=== PATIENT | male | born 1995 | race Two or more races ===

== ENCOUNTER 2018-09-21 16:33 | Inpatient (IN) ==
[2018-09-21] MEDS ORDERED: SODIUM CHLORIDE 0.9% 1000ML 1,000 ML IV SCH ×2 (16:45→21:55)
[2018-09-21 17:56] LABS: Basophils # (auto) 0.02 K/uL (0-0.2); Basophils % (auto) 0.2 %; Eosinophils # (auto) 0.04 K/uL (0-0.5); Eosinophils % (auto) 0.4 %; Hematocrit (blood only) 45.7 % (42-52); Hemoglobin 16.3 g/dL (14.0-18.0); Immature Granulocytes # (auto) 0.02 K/uL (0.00-0.02); Immature Granulocytes % (auto) 0.2 %; Lymphocytes # (auto) 2.95 K/uL (1.2-3.4); Lymphocytes % (auto) 33.2 %; Mean Corpuscular Hgb Conc 35.7 g/dL (32-36); Mean Corpuscular Volume 89.1 fL (80-100); Mean Platelet Volume 10.2 fL (7.4-10.4); Monocytes # (auto) 0.58 K/uL (0.11-0.59); Monocytes % (auto) 6.5 %; Neutrophils # (auto) 5.28 K/uL (1.4-6.5); Neutrophils % (auto) 59.5 %; Platelet Count 198 K/uL (130-400); RDW Coefficient of Variation 12.1 % (11.5-14.5); Red Blood Count 5.13 M/uL (4.7-6.1); White Blood Count 8.89 K/uL (4.8-10.8)
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
[2018-09-21 18:15] LABS: Alanine Aminotransferase 27 U/L (12-78); Albumin Level 5.1 gm/dl (3.4-5.0); Aspartate Aminotransferase 19 U/L (15-37); BUN Creatinine Ratio 18.1 (10-20); Blood Urea Nitrogen 18 mg/dl (7-18); Calcium 9.8 mg/dl (8.5-10.1); Carbon Dioxide 26 mmol/L (21-32); Chloride 106 mmol/L (98-107); Est GFR (African American) 122.2; Est GFR (Non-African American) 105.4; Glucose 80 mg/dl (70-99); Potassium 3.8 mmol/L (3.5-5.1); Sodium 141 mmol/L (136-145)
[2018-09-21 18:25] LABS: Albumin Globulin Ratio 1.7 (0.9-2); Alkaline Phosphatase 60 U/L (45-117); Bilirubin,Total 0.9 mg/dl (0.2-1); Globulin 3.1 gm/dl (2.5-4.0); Total Protein 8.2 gm/dl (6.4-8.2)
[2018-09-21 19:14] LABS: Appearance Urine Cloudy (Clear); Bacteria Urine Automated Negative (Negative); Bilirubin Urine Negative (Negative); Blood Urine Negative (Negative); Color Urine Yellow; Epithelial Cell Urine Auto >30 /lpf (0-5); Glucose Urine UA Negative (Negative); Ketones Urine 2+ (Negative); Leukocyte Esterase Urine Trace (Negative); Nitrite Urine Negative (Negative); Protein Urine Negative (Negative); Urobilinogen Urine Negative (Negative)
[2018-09-21] MEDS: ONDANSETRON HOME PACK 4MG OD TAB PO ONE ×2 (19:48→20:07)
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
[2018-09-21 22:41] LABS: Magnesium 2.3 mg/dl (1.8-2.4); Phosphorus 3.6 mg/dl (2.5-4.9)
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
[2018-09-22 12:39] LABS: Lyme Ab IgG w/WB Rflx Negative (Negative); Lyme Ab IgM w/WB Rflx Negative (Negative)
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
[2018-09-22 14:31] LABS: Amphetamines+Metham, Urine Neg (Neg); Barbiturates, Urine Neg (Neg); Benzodiazepine, Urine Neg (Neg); Cocaine, Urine Neg (Neg); MDMA (Ecstacy), Urine Neg (Neg); Methadone, Urine Neg (Neg); Opiate, Urine Neg (Neg); Phencyclidine, Urine Neg (Neg)
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
[2018-09-23] MEDS ORDERED: GADOBUTROL 65ML VIAL IV PRN (17:19)
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
== END 2018-09-25 18:28 | DRG 885 ==
LOC: 3N 16:33 → ED 16:33 → SUATTDRO 20:47 → 3N 21:35 → SUATTDRO 09-23 15:29

== ENCOUNTER 2018-09-25 18:25 | Inpatient (IN) ==
[2018-09-25] MEDS ORDERED: ACETAMINOPHEN 325 MG TAB PO PRN (18:39)
[2018-09-25] MEDS ORDERED: MAGNESIUM HYDROXIDE SUSP 30 ML UDC PO PRN (18:39)
[2018-09-25] MEDS ORDERED: ALUMINUM/MAGNESIUM SUSP 30 ML UDC PO PRN (18:39)
[2018-09-25] MEDS ORDERED: SODIUM CHLORIDE 0.65% NA SOLN 45 ML (OCEAN) PRN (18:39)
[2018-09-25] MEDS ORDERED: BISMUTH SUBSALICYLATE PER ML OMNICELL CHARGE PO PRN (18:39)
[2018-09-25] MEDS: ARIPiprazole 5 MG TAB PO SCH (19:17)
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
[2018-09-26 07:27] LABS: Chol HDL Ratio 3; Cholesterol 145 mg/dl (0-200); HDL Cholesterol 43 mg/dl; LDL Cholesterol Calculated 89 mg/dl; Triglycerides 66 mg/dl (0-150); VLDL Cholesterol 13 mg/dl
[2018-09-26] MEDS: ARIPiprazole 5 MG TAB PO SCH (09:48)
[2018-09-26] MEDS ORDERED: risperiDONE 0.5 MG TABLET PO PRN (16:16)
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
[2018-09-27] MEDS: ARIPiprazole 5 MG TAB PO SCH (11:57)
[2018-09-27] MEDS: CYANOCOBALAMIN 500 MCG TABLET (VITAMIN B-12) PO SCH (11:58)
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
[2018-09-28] MEDS: ARIPiprazole 5 MG TAB PO SCH (09:41)
[2018-09-28] MEDS: CYANOCOBALAMIN 500 MCG TABLET (VITAMIN B-12) PO SCH (09:41)
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
[2018-09-28] MEDS ORDERED: risperiDONE 0.5 MG TABLET PO PRN (11:01)
[2018-09-29] MEDS: CYANOCOBALAMIN 500 MCG TABLET (VITAMIN B-12) PO SCH (07:55)
--- NOTE | 2018-09-29 12:16 | Psychiatric Progress Note ---
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 He has difficulty describing the voices that he hears, but notes that the content of the voices are typically depreciating and threatening. -Perhaps the most market feature of the patient's current presentation is is disorganized thinking and, to a lesser extent, disorganized behavior. He cannot explain why he is not eating, and when he attempts to do so his thought processes become so disorganized to that they cannot be followed by the listener. -The patient's speech is rambling and somewhat rapid, but not fully pressured. We want to rule out other psychiatric diagnoses including bipolar disorder. He does provide a history that suggests past episodes of elevated, expansive mood during which she has decreased desire for sleep, increased energy, and a great deal of enthusiasm. He notes that during these episodes that may last a week or 2 other people may tell him to "slow down" or to stop talking so much. He also acknowledges that he has had periods of depression in the past, including fairly recently. His symptoms of depression reportedly include depressed mood, psychosocial withdrawal, and apathy. -We would like to offer the patient a trial of low-dose aripiprazole to address his disorganized thinking and perceptual disturbances. -The patient's memory difficulties were more pronounced several days ago. He remains a vague historian, but today he is able to tell us that he is at [facility], located in [facility], and he correctly identifies the current date and his date of admission. However, he cannot tell us for certain whether he is ever been in a psychiatric unit, whether he has had psychiatric treatment in the past, and who may or may not currently live in his home in the community. The patient's memory difficulties may be postconcussive in nature or may be related to an underlying psychotic process 09/26 -Ultimately patient was admitted yesterday on a voluntary status from medical floor. He is now refusing Abilify. Will discontinue and substitute Risperdal 0.5 mg p.o. twice daily as needed for anxiety/insomnia/psychosis. Common risks and benefits reviewed. Patient encouraged to take, particularly at bedtime -So far unclear if patient is suffering from primary thought disorder, cyclic mood disorder, or possibly severe anxiety in the setting of cultural isolation and fatigue. He describes a severe homesick feeling and insomnia and perhaps this is more a form of acute stress reaction. If we see continued evidence of psychosis, we may need to pursue the 302 for medications over objection. -We will try to facilitate telephone family meeting with parents to expand database as able. 09/27 -Patient appearing more at ease with brighter affect and more logical thought process this morning after a good night's rest last evening -He initially agreed to take the Abilify once again and it was restarted however I was informed later that he ultimately declined it without reason -Attempted to reach his friend, Wilfredo, to expand database at provided number of [phone] but was unable to reach him directly and there was no opportunity to leave a voicemail. He has indicated that he would like to speak with the physician to provide additional information. We will reattempt contact. Hopefully he will come into visit again this afternoon and can relay some information to the staff at that time. -Patient has expressed desire to return to [place] following discharge. We are attempting to make direct contact with his parents -Recent labs reviewed again today. Glucose normal on 09/21/2018. Lipid panel unremarkable on 09/26/2018. His B12 level was within normal range but lower than we like for neurological benefit at 221 on 09/22/18 and will start vitamin B12 1000 mcg daily for supplementation 09/28 -Patient consistently refusing scheduled aripiprazole. Will discontinue it, but continue to offer risperidone 0.5 mg every 6 hours as needed psychosis/anxiety/insomnia. This medication did appear beneficial last night when he got it. -Scheduled family meeting with parents in [place], and get collateral information from them as well as family history. -Parents are attempting to get emergency pieces to come to the [place] and collect patient at discharge, and take him back to [facility]. We will need to help him coordinate with the [place]. 09/29 - Patient continues to refuse medications. He received risperidone last evening, but is not interested in taking any additional doses. Despite the medication reportedly being beneficial - Extensive meeting held with patient and friend, James. Pt did call parents, but there was limited translation provided by friend. Parents denied any concerns regarding their interactions with him on the phone today. Both supports suggest the patient is now at baseline and they feel comfortable with his discharge; actually requesting he leave today - Will continue to work with patient to ensure discharge planning and flight are arranged (2) Anxiety: 09/26 -Patient appears quite anxious with obsessive compulsive rigid quality to thinking. He is extremely invested in telephone contact with friend/family outside of hospital and rigidly preoccupied with the whereabouts of his belongings. 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 He tells us that he currently lives in a house in [place] with several roommates. He has no known past psychiatric history. And was admitted on 09/25/18 on a 201 voluntary because of a persistent set of mental status alterations that cannot be explained by any demonstrable somatic or neurologic etiology. Chief Complaint "I am very good. Thank you." Review of Systems Notes Constitutional: reports feeling "slow" after medications; but then states he has avoided things that give him energy [coffee] Cardiovascular: denied Respiratory: denied Gastrointestinal: denied Neurological: denied Psychiatric: denies symptoms other than stated above Total of at least 10 systems reviewed, pertinent positives as above and in HPI. Sleep Information Total Hours of Sleep: 6.25 Sleep Comments: did take a prn hs dose of risperdal Meal Information Percent Meal Consumed - Breakfast: 100 Percent Meal Consumed - Lunch: 0 Percent Meal Consumed - Dinner: 100 Nutrition Comment: documented on the patient meal record Subjective Subjective Patient was seen & assessed and interval progress reviewed with nursing and social work. Pt did agree to a prn dose of risperidone last evening, which reportedly appeared to be beneficial. Pt reported feeling "energetic" to staff. He did receive a visit from friends. Pt was seen today to assess progress since admission. Prior to assessment, this provider has observed the patient's behavior on the unit. Pt had been walking rather rigidly and slowly down the sanchez. He was found to be staring into the social work office, then slowly turned to walk again down the sanchez. He entered the day area, stared out the window and began a repeated movement of stretching out his arm, spreading his fingers, and then pulling his arm back in. Pt was informed of a phone call, and left to take it. He sat for a period of time staring at the wall with the phone laying on the counter. He was observed to be slowly reaching for the phone, clearly not reaching where the phone had been placed. At one point, he was again observed to be sitting near the phone, staring, with the phone laying on the counter beside him. Patient was later approached by this provider, as it had been passed along the patient was requesting to speak with a clinician. Pt recognized this provider and was agreeable to speaking. Patient veered off as this provider led him to the office. He quickly moved down the hallway, mentioning his "mobile" [cell phone]. He states, "Meghana [child protective services social worker] told me a phrase I could use if I needed to use my phone...it was...um..."when you have...time..."...um, I don't remember what it was." Pt was then also approached by nursing who suggested the patient take a prn risperidone as we attempted to explain we were concerned he was not acting himself. Pt had difficulty clearly expressing a desire to refuse the medication - speaking about the brain and spinal cord, no longer having problems, and reporting he felt "slow" on the medication. Pt was again encouraged to utilize the medication - he was observed to be staring off in the distance on several occasions, with periods of prolonged silence and no response to staff stating his name and asking questions. Patient was asked if he was seeing or hearing things. He states "seeing things." When asked what, it sounded as if he said "I see a lady" - in the activity room that no one was occupying at the time. When asked if staff could also see it, or just him, he states, "just me." Pt again refused recommendation for medication and walked away. This provider did participate in an attempt to reach out to the patient's parents via medical driver, which was unsuccessful. Fortunately, patient received a visit from a friend, James, who wished to provide supplemental information. Pt signed an MARISA and friend was brought back to the social work office with patient, child protective services social worker, and this provider. See Mental health worker note for additional information - in summary, the friend felt the patient has been improving, and today is behaving normally for him. The both expressed their hope for discharge today. Both were informed this would not be the case, but that additional information would help use determine this timeline. Friend reported, "earlier you could tell he was off, he had slow speech, and he would be quiet for a long time before talking." James feels patient is no longer displaying these symptoms. Pt was able to explain the long pauses are due to him feeling uncomfortable. We relayed the conversation from this morning regarding his prolonged staring and reporting visions only he could see. Pt justified his behavior by stating, "I said I see a radio, and I was thinking about music." Lito reports that patient would have support of friends should he be discharged soon and require assistance with packing. He feels the patient is at baseline at this time. We did call patient's family as well using the patient's phone, as the medical driver device had not connected previously. James had reported willingness to interpret conversation to allow for clear communication; however, the patient unfortunately took over the conversation discussing various topics with his parents. Both patient and his parents continue to request immediate discharge, and explanation was provided as to why this would not be possible. Pt resisted multiple attempts from staff to conclude his conversation, as little information could be obtained through the phone call. It was determined patient would be evaluated by the psychiatrist tomorrow to determine timeline of discharge. If appropriate, recommending family purchase a plane ticket for the end of the week. Physical Exam Psychiatric Orientation: alert, oriented x 3 and cooperative (only superficially) Apperance: appropriately dressed, appropriately groomed and appeared stated age Eye Contact: + fair eye contact (periods of intense staring alternating with moments of direct eye contact) Motor Behavior: steady gait and station and + psychomotor retardation various displays of psychomotor retardation (prolonged staring/standing in one space) alternating with a more typical presentation Speech: normal rate/rhythm/volume of speech (rapid speech likey cultural, though is somewhat pressured and hyperverbal) Affect: + anxious affect and + irritable affect Mood is less labile, though he continues to fluctuate between anxious presentation and irritability regarding not being discharged. At times flat affect is displayed, especially when it appears he may be responding to internal stimuli. Mood: + anxious mood (only reporting "I feel uncomfortable here"); no depressed mood "I feel fine, I would like to go today." Thought Process: goal directed thought process, + thought blocking and + loo seness of associations Patient appears to have demonstrated numerous different thought processes today - at times is highly organized and able to have effective conversation; other times he appears thought blocked and seems to be responding to internal stimuli. Unclear if occasions of looseness of associations are related to cultural misunderstandings or his thought process Thought Content: + preoccupation (with discharge) and + paranoid (requesting and thoroughly reviewing belonging's sheet) Hallucinations: no auditory hallucinations and no visual hallucinations Denies; though appears at times to be responding to internal stimuli. Cognition: attention grossly intact and language grossly intact Estimated Intelligence: + above average estimated intelligence Insight: + impaired insight Judgement: + impaired judgement Vital Signs (Past 24 Hours) Last Vital Signs Temp 36.5 C 09/29/18 06:42 Pulse 86 09/29/18 06:43 Resp 18 09/29/18 06:42 BP 115/80 09/29/18 06:43 Results & Data Current Inpatient Medications Current Inpatient Medications: Current Inpatient Medications Acetaminophen (Tylenol) 650 mg PO Q4H PRN PRN Reason: Headache or Minor Fever Stop: 10/25/18 18:38 Al Hydrox/Mg Hydrox/Simethicone (Maalox) 30 ml PO Q4H PRN PRN Reason: GI Upset Stop: 10/25/18 18:38 Bismuth Subsalicylate (Kaopectate) 15 ml PO PRN PRN PRN Reason: Loose Stool Stop: 10/25/18 18:38 Cyanocobalamin (Vitamin B-12) 1,000 mcg PO QAM TABITHA Stop: 10/27/18 11:14 Last Admin: 09/29/18 07:55 Dose: 500 mcg Documented by: Hydroxyzine HCl (Vistaril) 25 mg PO Q4H PRN PRN Reason: Anxiety Stop: 10/25/18 18:38 Hydroxyzine HCl (Vistaril) 50 mg PO HSZ PRN PRN Reason: Insomnia Stop: 10/25/18 18:38 Magnesium Hydroxide (Milk Of Magnesia) 30 ml PO DAILY PRN PRN Reason: Heartburn Stop: 10/25/18 18:38 Risperidone (Risperdal) 0.5 mg PO Q6H PRN PRN Reason: psychosis/anxiety/insomnia Stop: 10/26/18 16:15 Last Admin: 09/28/18 22:54 Dose: 0.5 mg Documented by: Sodium Chloride ([place] Nasal) 1 - 2 sprays NA PRN PRN PRN Reason: Nasal Dryness/Congestion Stop: 10/25/18 18:38 Post Discharge Appointments Primary Care Physician Name Of Family Doctor: TETE CPT Code CPT Code 10996
--- NOTE | 2018-09-30 09:34 | Psychiatric Progress Note ---
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 Working diagnosis is schizophreniform disorder, although there is a broad differential. He has been resistant to medication and is now refusing after taking only one dose of aripiprazole and 2 doses of risperidone. His behavior remains disorganized, with paranoia and VH, but is improved from admission. He is eating and sleeping better (although sleep is still suboptimal), and is not bathing or brushing teeth. He and his family are planning that he will return to [facility] after discharge, and aftercare is being arranged there. 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 He has difficulty describing the voices that he hears, but notes that the content of the voices are typically depreciating and threatening. -Perhaps the most market feature of the patient's current presentation is is disorganized thinking and, to a lesser extent, disorganized behavior. He cannot explain why he is not eating, and when he attempts to do so his thought processes become so disorganized to that they cannot be followed by the listener. -The patient's speech is rambling and somewhat rapid, but not fully pressured. We want to rule out other psychiatric diagnoses including bipolar disorder. He does provide a history that suggests past episodes of elevated, expansive mood during which she has decreased desire for sleep, increased energy, and a great deal of enthusiasm. He notes that during these episodes that may last a week or 2 other people may tell him to "slow down" or to stop talking so much. He also acknowledges that he has had periods of depression in the past, including fairly recently. His symptoms of depression reportedly include depressed mood, psychosocial withdrawal, and apathy. -We would like to offer the patient a trial of low-dose aripiprazole to address his disorganized thinking and perceptual disturbances. -The patient's memory difficulties were more pronounced several days ago. He remains a vague historian, but today he is able to tell us that he is at [facility], located in [facility], and he correctly identifies the current date and his date of admission. However, he cannot tell us for certain whether he is ever been in a psychiatric unit, whether he has had psychiatric treatment in the past, and who may or may not currently live in his home in the community. The patient's memory difficulties may be postconcussive in nature or may be related to an underlying psychotic process 09/26 -Ultimately patient was admitted yesterday on a voluntary status from medical floor. He is now refusing Abilify. Will discontinue and substitute Risperdal 0.5 mg p.o. twice daily as needed for anxiety/insomnia/psychosis. Common risks and benefits reviewed. Patient encouraged to take, particularly at bedtime -So far unclear if patient is suffering from primary thought disorder, cyclic mood disorder, or possibly severe anxiety in the setting of cultural isolation and fatigue. He describes a severe homesick feeling and insomnia and perhaps this is more a form of acute stress reaction. If we see continued evidence of psychosis, we may need to pursue the 302 for medications over objection. -We will try to facilitate telephone family meeting with parents to expand database as able. 09/27 -Patient appearing more at ease with brighter affect and more logical thought process this morning after a good night's rest last evening -He initially agreed to take the Abilify once again and it was restarted however I was informed later that he ultimately declined it without reason -Attempted to reach his friend, Wilfredo, to expand database at provided number of [phone] but was unable to reach him directly and there was no opportunity to leave a voicemail. He has indicated that he would like to speak with the physician to provide additional information. We will reattempt contact. Hopefully he will come into visit again this afternoon and can relay some information to the staff at that time. -Patient has expressed desire to return to [facility] following discharge. We are attempting to make direct contact with his parents -Recent labs reviewed again today. Glucose normal on 09/21/2018. Lipid panel unremarkable on 09/26/2018. His B12 level was within normal range but lower than we like for neurological benefit at 221 on 09/22/18 and will start vitamin B12 1000 mcg daily for supplementation 09/28 -Patient consistently refusing scheduled aripiprazole. Will discontinue it, but continue to offer risperidone 0.5 mg every 6 hours as needed psychosis/anxiety/insomnia. This medication did appear beneficial last night when he got it. -Scheduled family meeting with parents in [facility], and get collateral information from them as well as family history. -Parents are attempting to get emergency pieces to come to the [place] and collect patient at discharge, and take him back to [facility]. We will need to help him coordinate with the [place]. 09/29 - Patient continues to refuse medications. He received risperidone last evening, but is not interested in taking any additional doses. Despite the medication reportedly being beneficial - Extensive meeting held with patient and friend, James. Pt did call parents, but there was limited translation provided by friend. Parents denied any concerns regarding their interactions with him on the phone today. Both supports suggest the patient is now at baseline and they feel comfortable with his discharge; actually requesting he leave today - Will continue to work with patient to ensure discharge planning and flight are arranged 09/30 - Patient continues to refuse medication, and disorganized behavior co ntinues, with move to a private room yesterday. - Encourage patient to attend and participate in groups, attend to ADLs. - Family is working on finding a friend to accompany patient back to [place] a fter discharge. They state they have a hospital nearby where he can get ongoing treatment. (2) Anxiety: 09/26 -Patient appears quite anxious with obsessive compulsive rigid quality to thinking. He is extremely invested in telephone contact with friend/family outside of hospital and rigidly preoccupied with the whereabouts of his belongings. -we will consider additional interventions such as antidepressant or anxiolytic medication as indicated however patient declines any additional pharmacotherapy today 09/30 - Patient continues to decline medication. 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 He tells us that he currently lives in a house in [place] with several roommates. He has no known past psychiatric history. And was admitted on 09/25/18 on a 201 voluntary because of a persistent set of mental status alterations that cannot be explained by any demonstrable somatic or neurologic etiology. Chief Complaint "Things have been going good". Review of Systems Sleep Information Total Hours of Sleep: 5 Sleep Comments: pt appeared to be asleep @0100 and thereafter. pt needed reassurance to sleep in his room after room change. pt on q-15 minute checks Meal Information Percent Meal Consumed - Breakfast: 100 Percent Meal Consumed - Lunch: 100 Percent Meal Consumed - Dinner: 100 Nutrition Comment: documented on the patient meal record Subjective Subjective Patient was seen & assessed and interval progress reviewed with treatment team. Staff report he had prominent disorganized behavior yesterday, was staring and not responding for long periods of time, and reported visual hallucinations of a woman or a radio. He spent long periods on the phone, up to 2 hours, and was taking very rapidly in [place]. He has not been bathing or brushing his teeth. He continues to refuse medications, and has only received one dose of aripiprazole, and 2 doses of risperidone (last on 09/28). He carries around a stack of papers and was taking notes and reading through them. He was unable to participate in groups, and was placed in a private room due to his disorganized behavior. He was paranoid about the room, did not want to go inside, and asked for a varghese to lock it. He was resistant to going to sleep. Today on my assessment, he was seated at a table surrounded with stacks of paper, covered with notes, and was shuffling through them. He says he has been spending his time reading, mood is good, and sleep is still poor, but better than it was. He reports eating more than he was initially, but still less than he would typically eat, saying he reduced the amount he was eating as he "was feeling very full." His baseline weight is around 187lbs, and he now weighs 146lbs. He was seen with the social media intern and consulting group analyst was used to call his parents in [place], as they had requested to speak to the physician yesterday. The consulting group analyst was also utilized in discussion with the patient. He wanted to know "is there discharge paperwork?" Explained concerns about ongoing psychotic symptoms with disorganized thinking and behavior and visual hallucinations he reported yesterday. He said he wants to leave because he doesn't have any technology items here. Attempted to clarify his plans for returning to [place] after discharge, as family is trying to find someone to accompany him on the flight. Physical Exam Mental Examination Thin male appearing stated age. Casually dressed and adequately groomed. Seated in NAD, carrying a notebook covered in notes. Mood is "good," and affect is euthymic and congruent. Speech is normal rate, volume and tone. Thoughts are focused on discharge. Denies SI, HI, AVH. Displays paranoia re: medication, inspecting the package closely. Intelligence estimated to be above average. Insight and judgment are impaired. Vital Signs (Past 24 Hours) Last Vital Signs Temp 36.4 C L 09/30/18 07:05 Pulse 84 09/30/18 07:05 Resp 18 09/30/18 07:05 BP 109/73 09/30/18 07:05 Results & Data Current Inpatient Medications Current Inpatient Medications: Current Inpatient Medications Acetaminophen (Tylenol) 650 mg PO Q4H PRN PRN Reason: Headache or Minor Fever Stop: 10/25/18 18:38 Al Hydrox/Mg Hydrox/Simethicone (Maalox) 30 ml PO Q4H PRN PRN Reason: GI Upset Stop: 10/25/18 18:38 Bismuth Subsalicylate (Kaopectate) 15 ml PO PRN PRN PRN Reason: Loose Stool Stop: 10/25/18 18:38 Cyanocobalamin (Vitamin B-12) 1,000 mcg PO QAM TABITHA Stop: 10/27/18 11:14 Last Admin: 09/29/18 07:55 Dose: 500 mcg Documented by: Hydroxyzine HCl (Vistaril) 25 mg PO Q4H PRN PRN Reason: Anxiety Stop: 10/25/18 18:38 Hydroxyzine HCl (Vistaril) 50 mg PO HSZ PRN PRN Reason: Insomnia Stop: 10/25/18 18:38 Magnesium Hydroxide (Milk Of Magnesia) 30 ml PO DAILY PRN PRN Reason: Heartburn Stop: 10/25/18 18:38 Risperidone (Risperdal) 0.5 mg PO Q6H PRN PRN Reason: psychosis/anxiety/insomnia Stop: 10/26/18 16:15 Last Admin: 09/28/18 22:54 Dose: 0.5 mg Documented by: Sodium Chloride ([place] Nasal) 1 - 2 sprays NA PRN PRN PRN Reason: Nasal Dryness/Congestion Stop: 10/25/18 18:38 Post Discharge Appointments Primary Care Physician Name Of Family Doctor: TETE CPT Code CPT Code 94444
[2018-09-30] MEDS: CYANOCOBALAMIN 500 MCG TABLET (VITAMIN B-12) PO SCH (10:37)
[2018-10-01] MEDS: CYANOCOBALAMIN 500 MCG TABLET (VITAMIN B-12) PO SCH (08:05)
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
== END 2018-10-01 11:43 | disposition home or self-care (01) | DRG 885 ==
LOC: 3S 18:25